=== PATIENT | female | born 1975 | race Caucasian/White ===

== ENCOUNTER → 2020-02-24 | Outpatient (REF) | payer MEDICARE, MEDICAID ==
[2020-02-24 18:02] LABS: BASO # 0.1 10^3/uL (0.0-0.2); BASO % 0.8 % (0.0-1.0); EOS # 0.2 10^3/uL (0.0-0.5); EOS % 2.3 % (0.0-3.0); HEMATOCRIT 32.1 % (36.0-47.0); HEMOGLOBIN 10.8 g/dl (12.0-15.5); LYMPH # 3.3 10^3/uL (1.5-5.0); LYMPH % 43.4 % (24.0-44.0); MEAN CORPUSCULAR HEMOGLOBIN 30.3 pg (27.0-33.0); MEAN CORPUSCULAR HGB CONC 33.6 g/dl (32.0-36.5); MEAN CORPUSCULAR VOLUME 89.9 fl (80.0-96.0); MONO # 0.5 10^3/uL (0.0-0.8); MONO % 6.3 % (0.0-5.0); NEUTROPHILS # 3.6 10^3/uL (1.5-8.5); NEUTROPHILS % 46.5 % (36.0-66.0); PLATELET COUNT, AUTOMATED 408 10^3/uL (150-450); RED BLOOD COUNT 3.57 10^6/uL (4.00-5.40); WHITE BLOOD COUNT 7.7 10^3/uL (4.0-10.0)
[2020-02-24 18:25] LABS: CALCIUM LEVEL 8.5 MG/DL (8.5-10.1); CREATININE FOR GFR 1.43 MG/DL (0.55-1.30); GLOMERULAR FILTRATION RATE 42.1 (>58); POTASSIUM SERUM 4.5 MEQ/L (3.5-5.1)
[2020-02-24 18:34] LABS: INR 1.02; PROTHROMBIN TIME 13.1 SECONDS (11.8-14.0)
[2020-02-24 18:35] LABS: PARTIAL THROMBOPLASTIN TIME 33.5 SECONDS (25.0-38.4)
== END ==
LOC: M LAB REF 16:32
PROVIDERS: ATTEND Internal Medicine Pulmonary Disease
DX: Z01.812 Encounter for preprocedural laboratory examination (principal); R91.8 Other nonspecific abnormal finding of lung field; Z79.01 Long term (current) use of anticoagulants

== ENCOUNTER → 2020-03-13 | Outpatient (CLI) | payer MEDICARE, MEDICAID ==
[~2020-03-13] MED LIST: INSUH10VL SC; INSULANT SC; OMEP40CA97 PO; TRAZ-189 PO; TRIC145T22 PO; VENL150C43 PO
--- NOTE | 2020-03-13 16:13 | REP ---
REASON: Followup. COMPARISON: Outside exam, 01/27/2020, no report. The lack of intravenous contrast decreases the sensitivity of the exam. Mediastinum and pulmonary zoya are unchanged. There is no evidence of a mass or adenopathy. There are no pleural or pericardial effusions. There is no change in the imaged upper abdomen or imaged osseous structures. Evaluation of the lung steinberg shows a 1.8-cm sized spiculated left upper lobe nodule with an air density within it, likely secondary to previous biopsy, which was performed 01/30/2020. This spiculated nodule replaces a massive left upper lobe mass density previously measuring approximately 6.2 cm. There is an unchanged incidental calcified granuloma in the right upper lobe. There is an unchanged noncalcified right upper lobe nodule which measures approximately 8 mm. There is an unchanged nodule in the right lower lobe measuring approximately 6 mm. There are a few subtle right lower lobe ground-glass opacities which have developed since the last exam. IMPRESSION: 1. The large left upper lobe mass seen previously has gotten significantly smaller with related findings as described above. 2. Stable pulmonary nodules. 3. New subtle right lower lobe ground-glass opacities likely representing subsegmental atelectatic changes, however, followup is recommended. 4. Other findings and exam limitations, as described above. Electronically Signed by Keegan Mora DO 03/13/2020 05:05 P
== END ==
LOC: M RAD 12:43
PROVIDERS: ATTEND Internal Medicine Pulmonary Disease
DX: Z01.818 Encounter for other preprocedural examination (principal); R91.8 Other nonspecific abnormal finding of lung field; Z11.59 Encounter for screening for other viral diseases
CPT/HCPCS: 71250; C9803; U0003

== ENCOUNTER → 2020-03-13 | Outpatient (CLI) | payer MEDICARE, MEDICAID | LOC: M LABSMTC 11:15 | PROVIDERS: ATTEND Anesthesiology | DX: Z01.818 Encounter for other preprocedural examination (principal); Z11.59 Encounter for screening for other viral diseases ==

== ENCOUNTER 2020-03-16 08:26 | Day surgery (SDC) | payer MEDICARE, MEDICAID ==
[~2020-03-16] VITALS: Ht 175.3 cm; Wt 80.9 kg
[~2020-03-16 08:26] MED LIST changes: +LIDOCAINE 1% MDV 20ML VIAL SQ PRN; +LR 1,000 ML IV ONE
[2020-03-16] MEDS ORDERED: CETACAINE SPRAY 5GM As Ordered ONE (09:10)
[2020-03-16] MEDS ORDERED: propofoL 200 MG/20 ML VIAL As Ordered ONE (09:16)
[2020-03-16] MEDS ORDERED: ROCURONIUM BROMIDE 50 MG/5 ML VIAL As Ordered ONE (09:16)
[2020-03-16] MEDS ORDERED: LIDOCAINE 2% 100MG/5ML SDV (FOR ANES.) As Ordered ONE (09:16)
[2020-03-16] MEDS ORDERED: METOCLOPRAMIDE INJ 10MG/2ML VIAL (J2765 PER 1) As Ordered ONE (09:16)
[2020-03-16] MEDS ORDERED: ONDANSETRON 4MG/2ML VIAL As Ordered ONE (09:16)
[2020-03-16] MEDS ORDERED: fentaNYL 100 MCG/2 ML INJECTION (J3010) As Ordered ONE (09:17)
[2020-03-16] MEDS ORDERED: MIDAZOLAM INJ 2MG/2ML VIAL (J2250 PER 1MG) As Ordered ONE (09:17)
[2020-03-16] MEDS ORDERED: HumaLOG INSULIN (NovoLOG) PER UNIT SC ONE (09:30)
[2020-03-16] MEDS ORDERED: HumaLOG INSULIN (NovoLOG) PER UNIT As Ordered ONE (09:30)
[2020-03-16] MEDS ORDERED: METOCLOPRAMIDE INJ 10MG/2ML VIAL (J2765 PER 1) IV PRN (10:45)
[2020-03-16] MEDS ORDERED: fentaNYL 100 MCG/2 ML INJECTION (J3010) IV PRN (10:45)
[2020-03-16] MEDS ORDERED: LR 1,000 ML IV SCH (10:45)
[2020-03-16] MEDS ORDERED: ONDANSETRON 4MG/2ML VIAL IV PRN (10:45)
[2020-03-16] MEDS ORDERED: PERCOCET 5MG/325MG TAB PO PRN (10:45)
[2020-03-16] MEDS ORDERED: SUGAMMADEX SODIUM 500 MG/5 ML VIAL (BRIDION) As Ordered ONE (11:02)
[2020-03-16 11:10] VITALS: BP 130/70
--- NOTE | 2020-03-16 11:28 | ROOR ---
Patient Name: Monalisa Brooke Procedure Date: 03/16/2020 9:18 AM Date of : 1975 Admit Type: Outpatient Age: 44 Note Status: Finalized Attending MD: Yun Estrada MD Procedure: Bronchoscopy Indications: Left upper lobe mass Providers: Yun Estrada MD (Doctor) Referring MD: Tiago Zeng MD (Referring MD) Requesting Physician: Medicines: General Anesthesia, Cetacaine topical Complications: No immediate complications. Estimated blood loss: Minimal Procedure: Pre-Anesthesia Assessment: - Prior to the procedure, a History and Physical was performed, and patient medications and allergies were reviewed. The patient's tolerance of previous anesthesia was also reviewed. The risks and benefits of the procedure and the sedation options and risks were discussed with the patient. All questions were answered, and informed consent was obtained. Prior Anticoagulants: The patient has taken no previous anticoagulant or antiplatelet agents. ASA Grade Assessment: II - A patient with mild systemic disease. After reviewing the risks and benefits, the patient was deemed in satisfactory condition to undergo the procedure. The Bronchoscope was introduced through the mouth, via the endotracheal tube (the patient was intubated for the procedure) and advanced to the tracheobronchial tree of both lungs. The procedure was accomplished without difficulty. The patient tolerated the procedure well. Findings: The endotracheal tube is in good position. The visualized portion of the trachea is of normal caliber. The cathy is sharp. The tracheobronchial tree was examined to at least the first subsegmental level. Bronchial mucosa showed some pitting and webbing. Bronchial anatomy are normal; there are no endobronchial lesions. There were some thick white mucoid secretions noted throughout bronchial tree. Electromagnetic navigation bronchoscopy utilizing the [employer] system with [employer] upgrade was performed. The CT scan was used for planning purposes. A virtual bronchoscopic image was generated using the planning software and the cathy, left main bronchus cathy, left lower lobe basilar segment, right upper lobe, right middle lobe and right lower lobe basilar segment registration points were marked on the virtual image. The target in the apical-posterior segment of the left upper lobe was marked. A nodule approx 1.8 cm in size was found and a pathway was created. After a complete airway exam, the locatable guide/extended working channel was inserted and an automatic registration was performed by advancing the scope through the cathy, left main bronchus cahty, left lower lobe basilar segment, right upper lobe, right middle lobe and right lower lobe basilar segment. The navigation phase was then begun to locate the target lesion(s). Positioning was confirmed using the Olympus radial probe ultrasound catheter. The locatable guide was removed from the extended working channel. Fluoroscopy guided transbronchial brushings of a nodule were obtained in the apical-posterior segment of the left upper lobe with a needle brush and cytology brush and sent for routine cytology, aerobic culture and anaerobic culture. Two samples were obtained. Transbronchial brushing technique was selected because the sampling site was not accessible using standard endoscopic (bronchoscopic) techniques. Transbronchial biopsies of a nodule were performed in the apical-posterior segment of the left upper lobe using forceps and sent for histopathology examination. The procedure was guided by fluoroscopy. Transbronchial biopsy technique was selected because the sampling site was not visible endoscopically. Bronchoalveolar lavage was performed in the GIULIA apical posterior segments (B1 & B2) of the lung and sent for cell count, bacterial culture, and fungal & AFB analysis and cytology. The return was blood-tinged and cellular. Bronchoalveolar lavage was performed in the RLL superior segment (B6) of the lung and sent for cell count, bacterial culture, and fungal & AFB analysis. The return was blood-tinged. Mucous plugs were present in the return fluid. An endobronchial ultrasound endoscope was utilized in order to assess the mediastinal and hilar lymph nodes in the right paratracheal area, in the subcarinal area, in the right hilum and in the left hilum. There were no pathologically enlarged lymph nodes present, no samples of lymph nodes were taken. Impression: - Left upper lobe mass - The airway examination was normal. - Electromagnetic navigation bronchoscopy was performed. - Transbronchial brushings were obtained. - Transbronchial lung biopsies were performed. - Bronchoalveolar lavage was performed in GIULIA and RLL - Endobronchial ultrasound was performed. Recommendation: - Await test results. Attending Participation: I personally performed the entire procedure. Yun Estrada MD 03/16/2020 11:28:19 AM Number of Addenda: 0 Note Initiated On: 03/16/2020 9:18 AM
[2020-03-16 12:33] LABS: COLOR RED (COLORLESS); SOURCE LEFT LOWER LOBE
[2020-03-16 12:34] LABS: APPEARANCE HAZY (CLEAR)
--- NOTE | 2020-03-16 13:53 | REP ---
C-ARM VIEW CHEST: C-arm view of the chest is performed during bronchoscopy. Bronchoscope overlies the left upper lobe. 2 minutes 32 seconds fluoroscopy time utilized. Electronically Signed by Alexi De Guzman MD 03/16/2020 10:57 P
--- NOTE | 2020-03-16 14:17 | REP ---
CHEST, SINGLE VIEW: Single view of the chest is performed following bronchoscopy. There is no pneumothorax. Subtle left upper lobe opacity is noted. There is a calcified granuloma in the right mid lung. Heart is not enlarged. IMPRESSION: No pneumothorax, status post bronchoscopy. Electronically Signed by Alexi De Guzman MD 03/16/2020 11:01 P
[2020-03-17 08:53] LABS: MONOCYTES/MACROPHAGES, BAL 15 %
== END 2020-03-16 12:00 | disposition home or self-care (01) ==
LOC: M SDC 08:26
PROVIDERS: ATTEND Internal Medicine Pulmonary Disease
DX: R91.8 Other nonspecific abnormal finding of lung field (principal); G47.33 Obstructive sleep apnea (adult) (pediatric); F17.218 Nicotine dependence, cigarettes, with other nicotine-induced disorders; E10.9 Type 1 diabetes mellitus without complications; J44.9 Chronic obstructive pulmonary disease, unspecified; F32.9 Major depressive disorder, single episode, unspecified; M54.9 Dorsalgia, unspecified; K21.9 Gastro-esophageal reflux disease without esophagitis; E78.5 Hyperlipidemia, unspecified; Z79.899 Other long term (current) drug therapy; Z79.51 Long term (current) use of inhaled steroids; Z88.1 Allergy status to other antibiotic agents; Z88.8 Allergy status to other drugs, medicaments and biological substances
CPT/HCPCS: 31623; 31624; 31627; 31628; 31652; 71045; 76000; 81025; 87070; 87071; 87102; 87116; 87205; 87206; 88104; 88108; 88305; 88313; 89051; J2250; J2405; J2765; J3010

== ENCOUNTER → 2024-07-23 | Outpatient (CLI) | payer MEDICARE, MEDICAID ==
[~2024-07-23] MED LIST changes: -LIDOCAINE 1% MDV 20ML VIAL SQ PRN; -LR 1,000 ML IV ONE; +OMEP40CA4 PO; -OMEP40CA97 PO
== END ==
LOC: M PLARAD 11:04
PROVIDERS: ATTEND Internal Medicine
DX: R91.1 Solitary pulmonary nodule (principal)
CPT/HCPCS: 78815; A9552